=== PATIENT | female | born 1990 | race American Indian/Alaskan Native ===

== ENCOUNTER 2016-10-29 11:07 | Emergency (ER) | payer MEDICAID ==
[2016-10-29 11:33] VITALS: BP 139/100
[2016-10-29] MEDS ORDERED: BABY ASPIRIN PO ONE (11:35)
--- NOTE | 2016-10-29 11:39 | Emergency Department Report ---
Entered by KERRY OLIVARES, acting as scribe for TED RAGLAND NP. Stated Complaint: RAPID HEART RATE Time Seen by Provider: 10/29/16 11:27 - HPI History of Present Illness: 26 y/o non-toxic, non ill-appearing female in no acute distress presents to ED c /o chest pain with associated SOB. She describes her chest pain as heavy, denies radiation to her arms, neck, or jaw. Only reports Hx of gestational HTN in the past. Notes N/V, 2 episodes with last emesis upon arrival to ED. - ROS Review of Systems: + chest pain, SOB, N, V - Exam Vital Signs: Vital Signs 10/29/16 11:30 Temperature 99.0 F Pulse Rate 108 H Respiratory 18 Rate Blood Pressure 139/100 O2 Sat by Pulse 100 Oximetry Physical Exam: Non-reproducible chest pain, normal heart sounds S1 S2, normal breath sounds. non toxic, non ill appearing, no acute distress MSE screening note: Focused history and physical exam performed. Due to findings the following was ordered: CXR, CBC, BMP, PT/INR, EKG, troponin, CK/CKMB, UA, hcg quantitative serum, Aspirin 81 mg ED Disposition for MSE Condition: Stable This documentation as recorded by the scribe,KERRY OLIVARES,accurately reflects the service I personally performed and the decisions made by ELLYN rodriguez MARTIN, [place].
[2016-10-29 11:59] LABS: Basophils % (Auto) 0.4 % (0.0-1.8); Eosinophils % (Auto) 0.6 % (0.0-4.3); Hematocrit 42.4 % (30.3-42.9); Mean Corpuscular HGB Conc 33 % (30-34); Mean Corpuscular Hemoglobin 31 pg (28-32); Mean Corpuscular Volume 92 fl (79-97); Platelet Count 208 K/mm3 (140-440); Red Blood Count 4.59 M/mm3 (3.65-5.03); Red Cell Distribution Width 15.2 % (13.2-15.2); White Blood Count 7.7 K/mm3 (4.5-11.0)
--- NOTE | 2016-10-29 12:06 | XRay Report ---
ROUTINE CHEST, TWO VIEWS: HISTORY: chest pain. The trachea, heart, mediastinal contour, lung fischer and bony thorax are unremarkable. IMPRESSION: Unremarkable chest x-ray.
[2016-10-29 12:08] LABS: INR 0.97 (0.87-1.13)
[2016-10-29 12:15] LABS: Creatine Kinase MB 1.7 ng/mL (0.0-4.0)
[2016-10-29 12:20] LABS: Alanine Aminotransferase 13 units/L (7-56); Albumin 4.8 g/dL (3.9-5); Albumin/Globulin Ratio 1.7 %; Anion Gap 26 mmol/L; Blood Urea Nitrogen 16 mg/dL (7-17); Calcium 9.6 mg/dL (8.4-10.2); Carbon Dioxide 19 mmol/L (22-30); Chloride 97.8 mmol/L (98-107); Glucose 80 mg/dL (65-100); Potassium 4.2 mmol/L (3.6-5.0); Sodium 139 mmol/L (137-145); Total Protein 7.6 g/dL (6.3-8.2)
[2016-10-29 13:09] LABS: Alkaline Phosphatase 59 units/L (35-129)
--- NOTE | 2016-11-01 11:14 | ED Elopement Review ---
ED Pt Elopement review - Results review Lab results: Laboratory Tests 10/29/16 10/29/16 10/29/16 11:39 11:39 11:39 WBC 7.7 RBC 4.59 Hgb 14.0 Hct 42.4 MCV 92 MCH 31 MCHC 33 RDW 15.2 Plt Count 208 Lymph % (Auto) 18.5 [place] % (Auto) 5.5 Eos % (Auto) 0.6 Baso % (Auto) 0.4 Lymph # 1.4 [place] # 0.4 Eos # 0.0 Baso # 0.0 Seg Neutrophils % 75.0 H Seg Neutrophils # 5.8 PT 12.8 INR 0.97 Sodium 139 Potassium 4.2 Chloride 97.8 L Carbon Dioxide 19 L Anion Gap 26 BUN 16 Creatinine 1.0 Estimated GFR > 60 BUN/Creatinine Ratio 16.00 Glucose 80 Calcium 9.6 Total Bilirubin 0.40 AST 23 ALT 13 Alkaline Phosphatase 59 Total Creatine Kinase CK-MB (CK-2) CK-MB (CK-2) Rel Index Troponin T < 0.010 Total Protein 7.6 Albumin 4.8 Albumin/Globulin Ratio 1.7 HCG, Qual 10/29/16 10/29/16 11:39 11:39 WBC RBC Hgb Hct MCV MCH MCHC RDW Plt Count Lymph % (Auto) [place] % (Auto) Eos % (Auto) Baso % (Auto) Lymph # [place] # Eos # Baso # Seg Neutrophils % Seg Neutrophils # PT INR Sodium Potassium Chloride Carbon Dioxide Anion Gap BUN Creatinine Estimated GFR BUN/Creatinine Ratio Glucose Calcium Total Bilirubin AST ALT Alkaline Phosphatase Total Creatine Kinase 168 H CK-MB (CK-2) 1.7 CK-MB (CK-2) Rel Index 1.0 Troponin T Total Protein Albumin Albumin/Globulin Ratio HCG, Qual Negative - Call Back decision Pt Call Back Decision: No action required
== END 2016-10-29 13:40 | disposition left against medical advice (07) ==
LOC: ED 11:07
DX: R07.9 Chest pain, unspecified (principal); R06.02 Shortness of breath; Z53.21 Procedure and treatment not carried out due to patient leaving prior to being seen by health care provider
CPT/HCPCS: 36415; 71020; 80053; 82550; 82553; 84484; 84703; 85025; 85610; 93005; 93010

== ENCOUNTER 2021-10-03 09:53 | Emergency (ER) | payer MEDICAID ==
[2021-10-03 10:05] VITALS: BP 114/82
--- NOTE | 2021-10-03 11:32 | Emergency Department Report ---
ED Abdominal Pain HPI - General Chief Complaint: Abdominal Pain Stated Complaint: STOMACH PAIN PUI?: No Time Seen by Provider: 10/03/21 10:44 Source: patient Mode of arrival: Ambulatory Limitations: No Limitations - History of Present Illness Initial Comments: Patient is a 31-year-old female that comes to the emergency room with right lower quadrant what she calls a fibroid. She has had this mass for several years. Prior to COVID she was given a referral to general surgery but due to Covid she was not able to follow-up. She is here today for referrals for follow-up. MD Complaint: abdominal pain -: Gradual Location: RLQ Severity scale (0 -10): 7 Associated Symptoms: denies other symptoms - Related Data Previous Rx's Medication Instructions Recorded Last Taken Type Pnv 21/Iron Ps,Heme Ppep/Folic 1 each PO QDAY #30 tablet 09/23/14 Unknown Rx [Prefera Ob Tablet] Allergies Allergy/AdvReac Type Severity Reaction Status Date / Time Penicillins Allergy Mild Hives Verified 10/03/21 10:06 ED Review of Systems ROS: Stated complaint: STOMACH PAIN Other details as noted in HPI Comment: All other systems reviewed and negative ED Past Medical Hx - Past Medical History Previous Medical History?: Yes Additional medical history: Fibroids - Surgical History Past Surgical History?: Yes Additional Surgical History: X 2. RIGHT OVARY REMOVED/ TORSION - Family History Family history: no significant - Social History Smoking Status: Current Every Day Smoker Substance Use Type: Alcohol - Medications Home Medications: Home Medications Medication Instructions Recorded Confirmed Last Taken Type Pnv 21/Iron Ps,Heme Ppep/Folic 1 each PO QDAY #30 tablet 09/23/14 Unknown Rx [Prefera Ob Tablet] ED Physical Exam - General Limitations: No Limitations General appearance: alert, in no apparent distress - Head Head exam: Present: atraumatic, normocephalic - Eye Eye exam: Present: normal appearance - ENT ENT exam: Present: mucous membranes moist - Neck Neck exam: Present: normal inspection - Respiratory Respiratory exam: Present: normal lung sounds bilaterally. Absent: respiratory distress - Cardiovascular Cardiovascular Exam: Present: regular rate, normal rhythm. Absent: systolic murmur, diastolic murmur, rubs, gallop - GI/Abdominal GI/Abdominal exam: Present: soft, normal bowel sounds, other (Right lower quadrant chronic mass palpated) - Extremities Exam Extremities exam: Present: normal inspection - Back Exam Back exam: Present: normal inspection - Neurological Exam Neurological exam: Present: alert, oriented X3 - Psychiatric Psychiatric exam: Present: normal affect, normal mood - Skin Skin exam: Present: warm, dry, intact, normal color. Absent: rash ED Course Vital Signs 10/03/21 10:03 Temperature 98.3 F Pulse Rate 72 Respiratory 20 Rate Blood Pressure 114/82 [Right] O2 Sat by Pulse 100 Oximetry ED Medical Decision Making - Medical Decision Making Vital Signs 10/03/21 10:03 Temperature 98.3 F Pulse Rate 72 Respiratory 20 Rate Blood Pressure 114/82 [Right] O2 Sat by Pulse 100 Oximetry Patient has been given referrals as requested. She is nontoxic [id number]-onoxbrski and in no acute distress. She has normal vital signs. She is ambulatory and taking p.o. She is going to obtain all of her medical records and take them for her follow- up exams with OB and general surgery. - Differential Diagnosis Chronic abdominal fibroid Critical care attestation.: If time is entered above; I have spent that time in minutes in the direct care of this critically ill patient, excluding procedure time. ED Disposition Clinical Impression: Referral needed Disposition: 01 HOME / SELF CARE / HOMELESS Is pt being admited?: No Does the pt Need Aspirin: No Condition: Stable Instructions: Abdominal Pain (ED) Additional Instructions: Follow-up with [facility] and general surgery as we discussed. Take all of your records with you. Referrals have been provided below. Referrals: KIKE MELGAR MD [Staff Physician] - 3-5 Days DANIELA PARNELL MD [Staff Physician] - 3-5 Days HUYEN SALAZAR MD [Staff Physician] - 3-5 Days Time of Disposition: 11:33
== END 2021-10-03 12:21 | disposition home or self-care (01) ==
LOC: ED 09:53
DX: R10.31 Right lower quadrant pain (principal); F10.20 Alcohol dependence, uncomplicated; F17.200 Nicotine dependence, unspecified, uncomplicated
CPT/HCPCS: 99282

== ENCOUNTER 2021-12-16 10:05 | Emergency (ER) | payer MEDICAID ==
[2021-12-16] MEDS ORDERED: ONDANSETRON 4 MG/2 ML INJ IV ONE (12:22)
[2021-12-16] MEDS ORDERED: SODIUM CHLORIDE 0.9% 1000 ML 1,000 ML IV ONE (12:22)
[2021-12-16 13:02] LABS: Hematocrit 41.4 % (30.3-42.9); Hemoglobin 13.8 gm/dl (10.1-14.3); Mean Corpuscular HGB Conc 33 % (30-34); Mean Corpuscular Volume 91 fl (79-97); Platelet Count 207 K/mm3 (140-440); Red Blood Count 4.54 M/mm3 (3.65-5.03); Red Cell Distribution Width 13.9 % (13.2-15.2)
[2021-12-16 13:24] LABS: Alanine Aminotransferase 10 units/L (7-56); Albumin 4.5 g/dL (3.9-5); Blood Urea Nitrogen 13 mg/dL (7-17); Calcium 9.7 mg/dL (8.4-10.2); Hemolysis Index 22
[2021-12-16 13:38] LABS: BUN/Creatinine Ratio 22
--- NOTE | 2021-12-16 13:55 | Ultrasound Report ---
EARLY OBSTETRICAL ULTRASOUND INDICATION: preg, abdominal pain COMPARISON: None pertinent available TECHNIQUE: Transabdominal and endovaginal FINDINGS: Single intrauterine is noted with a fundal gestational sac seen. Estimated gestat ional age is 7 weeks 2 days. Yolk sac and pole are noted. Cardiac activity was documented at 14 3 bpm. No obvious abnormalities are seen. Left ovary shows no obvious abnormalities with blood flow documented on transabdominal study. Right o vary is not visualized. No free fluid. IMPRESSION: 7 week 2 day intrauterine without obvious abnormality Signer Name: Paul Renae MD Signed: 12/16/2021 1:50 PM Workstation Name: [id number]
[2021-12-16 16:18] LABS: Bilirubin,Urine NEG (Negative); Blood,Urine NEG (Negative); Color,Urine Yellow (Yellow)
[2021-12-16 16:22] LABS: Bacteria,Urine 1+ /HPF (Negative); Mucus,Urine 3+ /HPF
[2021-12-16 16:23] LABS: Protein,Urine <30 mg dL mg/dL (Negative)
--- NOTE | 2021-12-16 16:35 | Emergency Department Report ---
ED Abdominal Pain HPI - General Chief Complaint: Nausea/Vomiting/Diarrhea Stated Complaint: LOW BACK PAIN/POSS PREG Time Seen by Provider: 12/16/21 11:14 Source: patient Mode of arrival: Ambulatory Limitations: No Limitations - History of Present Illness Initial Comments: 31-year-old black female with no past medical history presents to the emergency department for evaluation of few day history of abdominal pain and back pain along with 1 week history of nausea vomiting. She states that she took a test this morning that was positive. She denies fever, dysuria, vaginal bleeding, and vaginal discharge. She states that she is G3, P2 and has not made an appointment with an [facility]ORT FILLER yet. MD Complaint: abdominal pain -: Gradual, days(s) (2-3) Location: suprapubic Radiation: none Migration to: no migration Severity scale (0 -10): 10 Quality: aching Consistency: intermittent Associated Symptoms: nausea, vomiting. denies: diarrhea, fever, chills, dysuria, hematemesis, hematochezia, melena, hematuria, anorexia, syncope - Related Data Previous Rx's Medication Instructions Recorded Last Taken Type Pnv 21/Iron Ps,Heme Ppep/Folic 1 each PO QDAY #30 tablet 09/23/14 Unknown Rx [Prefera Ob Tablet] Nitrofurantoin [place]/M-Cryst 100 mg PO BID 7 Days #14 capsule 12/16/21 Unknown Rx [Macrobid CAP] Ondansetron [Zofran Odt] 4 mg PO Q8HR PRN #12 tab.rapdis 12/16/21 Unknown Rx Allergies Allergy/AdvReac Type Severity Reaction Status Date / Time Penicillins Allergy Mild Hives Verified 12/16/21 10:12 ED Review of Systems ROS: Stated complaint: LOW BACK PAIN/POSS PREG Other details as noted in HPI Comment: All other systems reviewed and negative Constitutional: denies: chills, fever ENT: denies: congestion Respiratory: denies: shortness of breath, SOB with exertion Cardiovascular: denies: chest pain, palpitations Gastrointestinal: abdominal pain, nausea, vomiting. denies: diarrhea, hematemesis, melena, hematochezia Genitourinary: denies: urgency, dysuria, frequency, hematuria, discharge, abnormal menses Musculoskeletal: back pain Neurological: denies: headache, weakness ED Past Medical Hx - Past Medical History Additional medical history: Fibroids - Surgical History Additional Surgical History: X 2. RIGHT OVARY REMOVED/ TORSION - Social History Smoking Status: Never Smoker Substance Use Type: None - Medications Home Medications: Home Medications Medication Instructions Recorded Confirmed Last Taken Type Pnv 21/Iron Ps,Heme Ppep/Folic 1 each PO QDAY #30 tablet 09/23/14 Unknown Rx [Prefera Ob Tablet] Nitrofurantoin [place]/M-Cryst 100 mg PO BID 7 Days #14 capsule 12/16/21 Unknown Rx [Macrobid CAP] Ondansetron [Zofran Odt] 4 mg PO Q8HR PRN #12 tab.rapdis 12/16/21 Unknown Rx ED Physical Exam - General Limitations: No Limitations General appearance: alert, in no apparent distress - Head Head exam: Present: atraumatic, normocephalic - Eye Eye exam: Present: normal appearance. Absent: conjunctival injection - Neck Neck exam: Present: normal inspection, full ROM. Absent: tenderness - Respiratory Respiratory exam: Present: normal lung sounds bilaterally. Absent: respiratory distress, wheezes, rales, rhonchi, stridor, chest wall tenderness - Cardiovascular Cardiovascular Exam: Present: regular rate, normal heart sounds - GI/Abdominal GI/Abdominal exam: Present: soft, normal bowel sounds. Absent: distended, tenderness, guarding, rebound, rigid - Extremities Exam Extremities exam: Present: normal inspection. Absent: normal capillary refill, pedal edema, joint swelling, calf tenderness - Back Exam Back exam: Present: normal inspection. Absent: CVA tenderness (R), CVA t enderness (L), vertebral tenderness - Neurological Exam Neurological exam: Present: alert, oriented X3 - Psychiatric Psychiatric exam: Present: normal affect, normal mood - Skin Skin exam: Present: warm, dry, intact, normal color ED Course Vital Signs 12/16/21 12/16/21 10:08 16:48 Temperature 98 F Pulse Rate 99 H 88 Respiratory 16 Rate Blood Pressure 127/83 120/80 [Left] O2 Sat by Pulse 99 Oximetry ED Medical Decision Making - Lab Data Result diagrams: 12/16/21 12:29 12/16/21 12:29 - Radiology Data Radiology results: report reviewed, image reviewed ultrasound: FINDINGS: Single intrauterine is noted with a fundal gestational sac seen. Estimated gestational age is 7 weeks 2 days. Yolk sac and pole are noted. Cardiac activity was documented at 143 bpm. No obvious abnormalities are seen. Left ovary shows no obvious abnormalities with blood flow documented on transabdominal study. Right ovary is not visualized. No free fluid. IMPRESSION: 7 week 2 day intrauterine without obvious abnormality - Medical Decision Making 31-year-old black female with no past medical history presents to the emergency department for evaluation of few day history of abdominal pain and back pain along with 1 week history of nausea vomiting. She states that she took a test this morning that was positive. She denies fever, dysuria, vaginal bleeding, and vaginal discharge. She states that she is G3, P2 and has not made an appointment with an COMFORT FILLER yet. Physical exam unremarkable. Nausea vomiting resolved after medication and IV fluids, and patient states that she feels much better. No gross abnormalities noted on labs, urine positive for UTI, and ultrasound positive for IUP at 7 weeks. Patient will be discharged home with prescription for Zofran and Macrobid to take as directed. She is advised to follow-up with COMFORT FILLER for further evaluation and management or return to the emergency department for any concerning symptoms. She verbalizes understanding of and agreement with plan of care. Critical care attestation.: If time is entered above; I have spent that time in minutes in the direct care of this critically ill patient, excluding procedure time. ED Disposition Clinical Impression: Vomiting during Abdominal pain in Qualifiers: Trimester: first trimester Qualified Code(s): O26.891 - Other specified preg sheyla related conditions, first trimester UTI (urinary tract infection) Qualifiers: Urinary tract infection type: acute cystitis Hematuria presence: without hematuria Qualified Code(s): N30.00 - Acute cystitis without hematuria Disposition: 01 HOME / SELF CARE / HOMELESS Is pt being admited?: No Does the pt Need Aspirin: No Condition: Stable Instructions: Abdominal Pain During , Myho-dy-Ihis, Urinary Tract Infection, Adult, [id number], Morning Sickness, [id number] Additional Instructions: Take medications as prescribed. Increase intake of noncaffeinated fluids. Follow-up with [facility] for further evaluation and management. Return to the emergency department as needed. Prescriptions: Nitrofurantoin [place]/M-Cryst [Macrobid CAP] 100 mg PO BID 7 Days #14 capsule Ondansetron [Zofran Odt] 4 mg PO Q8HR PRN #12 tab.rapdis PRN Reason: Nausea And Vomiting Referrals: KEV ABBOTT MD [Staff Physician] - 3-5 Days CAMILLE RUIZ MD [Staff Physician] - 3-5 Days [facility] [Provider Group] - 3-5 Days Time of Disposition: 16:35
[2021-12-16 16:49] VITALS: BP 120/80
== END 2021-12-16 16:48 | disposition home or self-care (01) ==
LOC: ED 10:05
DX: O26.891 Other specified pregnancy related conditions, first trimester (principal); O21.8 Other vomiting complicating pregnancy; O23.41 Unspecified infection of urinary tract in pregnancy, first trimester; N39.0 Urinary tract infection, site not specified; Z3A.00 Weeks of gestation of pregnancy not specified; D21.9 Benign neoplasm of connective and other soft tissue, unspecified; Z98.890 Other specified postprocedural states; Z88.0 Allergy status to penicillin
CPT/HCPCS: 36415; 76801; 76817; 80053; 81001; 84702; 85027; 96361; 96374; 99284; J2405; J7030